=== PATIENT | female | born 1965 | race Asian ===

== ENCOUNTER → 2024-03-24 06:16 | Day surgery (SDC) | payer BC, SELFPAY | LOC: GI 06:16 | PROVIDERS: ATTENDING PHYSICIAN Internal Medicine | DX: Z12.11 Encounter for screening for malignant neoplasm of colon (principal); Z86.010 Personal history of colon polyps; K57.30 Diverticulosis of large intestine without perforation or abscess without bleeding; D12.8 Benign neoplasm of rectum | CPT/HCPCS: 45380; 88305 ==

== ENCOUNTER 2025-02-26 12:09 | Emergency (ER) | payer OTHER, SELFPAY ==
[2025-02-26] VITALS (8 sets, daily range): BP systolic 131–155; BP diastolic 63–100; PULSE 64
--- NOTE | 2025-02-26 12:30 | ED.GENMED ---
History of Present Illness
General
Chief Complaint: Blood Pressure Problem
Source: patient
Exam Limitations: none
Time Seen by Provider: 02/26/25 12:29
History of Present Illness
History of Present Illness:
59yoF with no significant past medical history presenting with her for evaluation of dizziness. Patient woke up this morning around 5am feeling dizzy like the room was spinning. She reports associated nausea and vomiting. Symptoms improve
temporarily after vomiting and she is currently feeling better. Dizziness is worse with standing and ambulation. She checked her blood pressure this morning which was elevated with SBP in the 160s. She took a dose of her 's blood pressure
medication although she does not have a diagnosis of hypertension. She denies any headache, visual changes, ear pain, tinnitus, hearing loss, chest pain, shortness of breath. No recent illnesses.
Past History
Past History
ED Past Medical History: Cancer (Breast)
ED Past Surgical History: Gynecological (Bilateral breast lumpectomy)
Social History
Tobacco: Non-smoker
Alcohol: None
Personal:
Living: with family
Employment: Not employed
Family History
Family History: Other (Noncontributory)
Phy Exam
General Physical Exam
General Presentation: well appearing and no apparent distress
General Skin: warm and dry
General Habitus: normal
General Mental: alert
ENT Exam
ENT Exam: TM's normal, pharynx normal, neck supple and normocephalic
Eye Exam
Eye Exam: PERRL, EOMI and conjunctiva normal
Cardiovascular Exam
Cardiovascular Exam: regular rate/rhythm
Pulmonary Exam
Pulmonary Exam: lungs clear, no respiratory distress, no rales, no crackles, no rhonchi and no wheezing
Neurological Exam
Neurological Exam: alert and other (CN 2-12 intact. No nystagmus. Normal finger to nose and heel to george. Able to ambulate independently but slightly off balance.)
[place] Coma Scale
Eye Opening: Spontaneous
Verbal Response: Oriented
Motor Response: Obeys Commands
GCS Total Score: 15
Skin Exam
Skin Exam: normal color and warm/dry
Psychiatric Exam
Psychiatric Exam: normal mood/affect
Course
Orders/Labs/Results
Orders:
Orders
02/26/25 12:14
ECG [Electrocardiogram (*1)] Urgent
Reason for Study: Hypertension, Benign
EKG- Treatment ONCE
02/26/25 13:01
0.9% Sodium Chloride 1000 ml [Nss] 1,000 ml IV BOLUS
Ondansetron Injectable [Zofran] 4 mg IV NOW STA
Pt Eval And Treat Urgent
Treatment: vestibular eval
Activity Level: Out of Bed- Ad Alessandra
02/26/25 13:02
CT Head W/o Iv Contrast Urgent
Comment:
Reason For Exam: dizziness
02/26/25 13:17
Complete Blood Count/With Diff Urgent
02/26/25 14:06
Comprehensive Metabolic Panel Urgent
Troponin I Urgent
02/26/25 15:21
Meclizine [Antivert] 25 mg PO NOW STA
Abnormal Lab Results
02/26/25 02/26/25
13:17 14:06
Absolute Lymphs (auto) 1.1 L 10^3/uL
(1.2-3.4)
Neutrophils % 78.4 H %
(42.2-75.2)
Lymphocytes % 17.3 L %
(20.5-51.1)
Chloride 110 H mmol/L
(98-107)
Creatinine 0.5 L mg/dL
(0.6-1.0)
Glucose 113 H mg/dl
(70-99)
02/26/25 13:17
02/26/25 14:06
Vital Signs
Initial and Last Documented VS:
Initial Vital Signs
Temp Pulse Resp BP Pulse Ox
98.0 F 64 20 155/100 98
02/26/25 12:11 02/26/25 12:11 02/26/25 12:11 02/26/25 12:11 02/26/25 12:11
Last Documented Vital Signs
Temp Pulse Resp BP Pulse Ox
98.0 F 62 17 134/83 97
02/26/25 12:11 02/26/25 15:45 02/26/25 15:45 02/26/25 15:44 02/26/25 14:00
MDM/Problems Addressed
Differential Diagnosis Includes:
59yoF here with dizziness and vomiting that began this morning. Feels like room is spinning. Also concerned because BP was elevated at home. BP 155/100 on arrival. She is well appearing in no distress. No ataxia or nystagmus noted on exam.
Differential diagnosis includes but is not limited to: BPPV, vestibular neuronitis, Meniere's, hypertensive urgency, consider CVA
Initial ED plan: Check cardiac labs, EKG, and CT head. IV Zofran and fluid bolus for symptoms.
*Pulse Oximetry
SaO2: 98
Oxygen Mode of Delivery: Room air
Patient hypoxic: no (98%)
*EKG
Interpreted by ED Provider?: Yes
EKG Intrepretation Date: 02/26/25
Heart Rate: 63
Rate: normal
Rhythm: sinus
Preston: normal axis
Interval: normal interval
QRS Pattern: normal QRS
Ischemia: no ischemia
*Critical Care Note
Total Time (30-74mins, 75-104mins- exclusive of procedures): Not Applicable
Update Note
Update Note:
Labs overall unremarkable. EKG shows NSR without ischemic changes and troponin WNL. CT head is negative for acute findings. Patient evaluated by PT and was symptomatic with L Jennifer Hallpike maneuver. On reassessment, she is feeling much better and
dizziness has mostly resolved. Dose of meclizine ordered which she declines. Blood pressure improved to 134/83 without intervention. Very low suspicion for central vertigo. No indication for hospitalization. Prescriptions provided for meclizine and
Zofran as well as script for outpatient vestibular therapy. Advised f/u with PCP within the next 48 hours and strict ED return precautions reviewed.
ED Attending Note
-
Portions of this chart may have been created with voice recognition software.� Occasional wrong word or��sound alike� substitutions may have occurred due to the inherent limitations of voice recognition software.
Discharge Plan
Departure
Patient Disposition: Home (Routine Discharge)
Date of Disposition: 02/26/25
Time of Disposition: 15:39
Patient with high blood pressure during this ER visit?: Yes
Discharge Problem:
Vertigo, Nausea and vomiting
Instructions: Vertigo - ED discharge instructions
Prescriptions:
New
meclizine 25 mg tablet
25 mg PO TID PRN (Reason: dizziness) Qty: 20 0RF
ondansetron 4 mg tablet,disintegrating
4 mg PO Q6H PRN (Reason: nausea and vomiting) Qty: 20 0RF
No Action
nitrofurantoin monohyd/m-cryst 100 MG capsule
100 mg PO BID Qty: 9 0RF
phenazopyridine 200 MG tablet
200 mg PO TID Qty: 6 0RF
Referrals:
UNKNOWN - PT DOES,NOT KNOW [Family Provider]
Activity Restrictions/Additional Instructions:
Take meclizine as needed for dizziness and Zofran as needed for nausea.
Please call your family doctor tomorrow to schedule a follow-up appointment in the next 1-2 days. You should also make an appointment with vestibular therapy.
Return to the ER immediately with any new or worsening symptoms.
Interventions
Interventions:
*Risk Screen - Suicide Last Done: 02/26/25 12:42
*General Assessment Last Done: 02/26/25 12:11
*Neglect/Abuse Screening Last Done: 02/26/25 12:42
*ED- Fall Risk Assessment Last Done: 02/26/25 12:32
*ED COVID-19 Vaccine History Last Done: 02/26/25 12:32
*Nursing Disposition Last Done: 02/26/25 15:48
ED- Cardiac Assessment Last Done: 02/26/25 12:41
ED- Neurological Assessment Last Done: 02/26/25 12:41
ED- Pulmonary Assessment Last Done: 02/26/25 12:41
Discharge Date and Time
Discharge Date/Time: 02/26/25 15:49
Print Language: PASHTO
[2025-02-26] MEDS: NSS 1000 IV (13:26)
[2025-02-26] MEDS: ZOFRAN 4 MG IV (13:26)
[2025-02-26 13:35] LABS: % Basophils 0.3 % (0-2); % Eosinophils 0.2 % (0-6); % Immature Granulocytes 0.2 % (0-0.5); % Lymphocytes 17.3 % (20.5-51.1); % Monocytes 3.6 % (1.7-9.3); % Neutrophils 78.4 % (42.2-75.2); Absolute Lymphocytes 1.1 10^3/uL (1.2-3.4); Absolute Monocytes 0.2 10^3/uL (0.1-0.6); Hematocrit 42.1 % (37.0-47.0); Hemoglobin 14.6 g/dL (12.0-16.0); Mean Corp Hgb Conc. 34.7 g/dL (33.0-37.0); Mean Corpuscular Hgb 30.7 pg (27.0-31.0); Mean Corpuscular Volume 88.4 fL (81.0-99.0); Mean Platelet Volume 8.1 fL (7.4-10.4); Nucleated Red Blood Cells % 0 %; Platelet Count 347 10^3/uL (130-400); Red Blood Cell Count 4.76 10^6/uL (4.20-5.40); Red Cell Dist. Width 11.9 % (11.5-14.5); White Blood Cell Count 6.4 10^3/uL (4.8-10.8)
[2025-02-26 14:30] LABS: ALT (SGPT) 25 U/L (0-35); AST (SGOT) 23 U/L (14-36); Albumin 4.9 g/dl (3.5-5.0); Alkaline Phosphatase 66 U/L (38-126); Blood Urea Nitrogen 10 mg/dl (7-17); Calcium 9.6 mg/dl (8.4-10.2); Carbon Dioxide 22 mmol/L (22-30); Chloride 110 mmol/L (98-107); Glucose 113 mg/dl (70-99); Potassium 4.3 mmol/L (3.5-5.1); Sodium 139 mmol/L (135-145); Total Bilirubin 0.9 mg/dl (0.2-1.3); Total Protein 7.4 g/dl (6.3-8.2); eGFR > 60.00
[2025-02-26 14:42] LABS: Troponin I < 0.012 ng/ml
== END 2025-02-26 15:49 | disposition home or self-care (01) ==
LOC: EMR 12:09
PROVIDERS: Physician Assistant; EMERGENCY PHYSICIAN Emergency Medicine
DX: R42 Dizziness and giddiness (principal); R11.2 Nausea with vomiting, unspecified; I10 Essential (primary) hypertension; Z85.3 Personal history of malignant neoplasm of breast
CPT/HCPCS: 99284; 96374; 96361; 70450; 80053; 84484; 85025; 93005